=== PATIENT | female | born 1975 | race Caucasian/White ===

== ENCOUNTER 2016-09-12 20:14 | Inpatient (IN) | payer OTHER, MEDICARE ==
[~2016-09-12] VITALS: Ht 165.1 cm; Wt 69.6 kg
[~2016-09-12 20:14] MED LIST: ALBU1AER INH; IBUP600 PO; PERC5TAB12 PO; PRENCAP6 PO
[2016-09-12] MEDS ORDERED: SODIUM CHLOR 0.9% 1000 ML INJ 1,000 ML IV SCH (20:17)
[2016-09-12 20:19] VITALS: BP 132/77; PULSE 99; RESP 18; TEMP 98.3; O2SAT 99
[2016-09-12 20:30] VITALS: RESP 18; O2SAT 100
--- NOTE | 2016-09-12 20:30 | PD ---
HPI Chief Complaint: Respiratory Symptoms Time Seen by Provider: 20:17 Travel History International Travel<30 days: No Contact w/Intl Traveler<30days: No Traveled to known affect area: No History of Present Illness HPI Patient 40-year-old female presents emergency department for altered mental status. According to EMS patient was apparently going to the mall to shop with her boyfriend. Her boyfriend arrived and found her slumped over in a chair. She was unresponsive that time, boyfriend started giving rescue breaths on scene. EMS arrived to find the patient propofol and apneic. She had an opiate past and was being bagged, she was given 0.5 mg of Narcan in route. On arrival the patient does have an OPA in place is sitting up and looking around. She then began to gag on the OPA Neocate was removed. The patient is GCS of 14(E3) . She states she was going to go shopping today and she doesn't know what happened. She relates some history of being at [facility] for a head injury. Further history of present illness is extremely limited by the patient' s condition however the patient is able to tell me she has no allergies takes no medicines has no medical problems and has had no surgeries. Review the records show she does have a history of bipolar disorder. PFSH Past Medical History Arthritis: No Asthma: Yes Autoimmune Disease: No Blood Disorders: No Bipolar Disorder: Yes Anxiety: Yes Depression: Yes Heart Rhythm Problems: No Cancer: No Cardiovascular Problems: Yes High Cholesterol: No Chemotherapy: No Chest Pain: No Congestive Heart Failure: No COPD: No Cerebrovascular Accident: No Diabetes: No Diminished Hearing: No Endocrine: No Gastrointestinal Disorders: Yes (IRRITABLE BOWEL SYNDROME) GERD: No Glaucoma: No Genitourinary: No Headaches: No Hepatitis: No Hiatal Hernia: No Immune Disorder: No Kidney Stones: No Musculoskeletal: Yes (RESTLESS LEG SYNDROME) Neurologic: No Psychiatric: Yes Respiratory: Yes Migraines: Yes Myocardial Infarction: No Radiation Therapy: No Renal Failure: No Schizophrenia: Yes Seizures: No Sickle Cell Disease: No Sleep Apnea: No Thyroid Disease: No Ulcer: No : 3 Miscarriage: 1 : 2 Past Surgical History Abdominal Surgery: No AICD: No Cardiac Surgery: No Cholecystectomy: Yes Ear Surgery: No Endocrine Surgery: No Eye Surgery: No Genitourinary Surgery: No Gynecologic Surgery: No Joint Replacement: No Neurologic Surgery: No Oral Surgery: Yes (WISDOM TEETH; DENTAL SX) Pacemaker: No Thoracic Surgery: No Tonsillectomy: Yes (1983) Other Surgery: Yes (TONSILS OUT, 1983) Social History Alcohol Use: No Tobacco Use: Yes Substance Use: No Allergies-Medications (Allergen,Severity, Reaction): Coded Allergies: Sulfa (Verified Allergy, Intermediate, HIVES, 09/12/16) Reported Meds & Prescriptions Reported Meds & Active Scripts Active Reported Klonopin (Clonazepam) 2 Mg Tab 2 Mg PO TID Trazodone (Trazodone HCl) 150 Mg Tab 150 Mg PO HS Multivitamin Adults (Multiple Vitamins W/ Minerals) 1 Tab 1 Tab PO DAILY Proair Hfa 8.5 GM Inh (Albuterol Sulfate) 90 Mcg/Act Aer 1 Puff INH Q4H PRN 108 mcg/actuation Abilify (Aripiprazole) 10 Mg Tab 10 Mg PO DAILY Review of Systems Except as stated in HPI: all other systems reviewed are Neg Physical Exam Narrative GENERAL: Well-developed well-nourished, OPA in place was removed on arrival as above. SKIN: Focused skin assessment warm/dry. HEAD: There is a contusion to the left frontal region. No dow signs no raccoons eyes. Normocephalic. EYES: Pupils equal and round. No scleral icterus. No injection or drainage. ENT: No nasal bleeding or discharge. Mucous membranes pink and moist. NECK: Trachea midline. No JVD. CARDIOVASCULAR: Regular rate and rhythm. No murmur appreciated. 2+ bilateral equal pulses in all 4 extremity's. RESPIRATORY: No accessory muscle use. Clear to auscultation. Breath sounds equal bilaterally. GASTROINTESTINAL: Abdomen soft, non-tender, nondistended. Hepatic and splenic margins not palpable. MUSCULOSKELETAL: No obvious deformities. No clubbing. No cyanosis. No edema. NEUROLOGICAL: Awake and alert. No obvious cranial nerve deficits. Motor grossly within normal limits. Normal speech. PSYCHIATRIC: Unable to assess. Data Data Last Documented VS Vital Signs Date Time Temp Pulse Resp B/P Pulse Ox O2 Delivery O2 Flow Rate FiO2 09/12/16 20:30 99 Nasal Cannula 2 09/12/16 20:30 18 09/12/16 20:19 98.3 99 132/77 Orders Electrocardiogram (09/12/16 20:17) Ammonia (09/12/16 20:17) Complete Blood Count With Diff (09/12/16 20:17) Comprehensive Metabolic Panel (09/12/16 20:17) Creatine Kinase (Cpk) (09/12/16 20:17) Prothrombin Time / Inr (Pt) (09/12/16 20:17) Act Partial Throm Time (Ptt) (09/12/16 20:17) Troponin I (09/12/16 20:17) Thyroid Stimulating Hormone (09/12/16 20:17) Urinalysis - C+S If Indicated (09/12/16 20:17) Ua Includes Microscopic (09/12/16 20:17) Lactic Acid Sepsis Protocol (09/12/16 20:17) Blood Culture (09/12/16 20:17) Chest, Single Ap (09/12/16 20:17) Ct Brain W/O Iv Contrast(Rout) (09/12/16 20:17) Blood Glucose (09/12/16 20:17) Ecg Monitoring (09/12/16 20:17) Iv Access Insert/Monitor (09/12/16 20:17) Cath For Specimen (09/12/16 20:17) Oximetry (09/12/16 20:17) Oxygen Administration (09/12/16 20:17) Urinary Catheter Insert/Apply (09/12/16 20:17) Sodium Chlor 0.9% 1000 Ml Inj (Ns 1000 M (09/12/16 20:17) Ct Cerv Spine W/O Contrast (09/12/16 ) Drug Screen, Random Urine (09/12/16 20:17) Ed Urine Pregnancytest Poc (09/12/16 20:17) Apply Cervical Collar (09/12/16 20:17) Arterial Blood Gas (Abg) (09/12/16 ) Urine Culture (09/12/16 20:40) Blood Gas Venous (Vbg) (09/12/16 22:51) Sodium Chlor 0.9% 1000 Ml Inj (Ns 1000 M (09/12/16 23:30) Admit Order (Ed Use Only) (09/12/16 ) Labs Laboratory Tests Test 09/12/16 09/12/16 09/12/16 09/12/16 20:30 20:38 20:40 23:18 White Blood Count 6.2 TH/MM3 Red Blood Count 5.34 MIL/MM3 Hemoglobin 15.4 GM/DL Hematocrit 45.3 % Mean Corpuscular Volume 84.8 FL Mean Corpuscular Hemoglobin 28.8 PG Mean Corpuscular Hemoglobin 33.9 % Concent Red Cell Distribution Width 13.3 % Platelet Count 198 TH/MM3 Mean Platelet Volume 7.9 FL Neutrophils (%) (Auto) 48.4 % Lymphocytes (%) (Auto) 45.1 % Monocytes (%) (Auto) 5.3 % Eosinophils (%) (Auto) 0.8 % Basophils (%) (Auto) 0.4 % Neutrophils # (Auto) 3.0 TH/MM3 Lymphocytes # (Auto) 2.8 TH/MM3 Monocytes # (Auto) 0.3 TH/MM3 Eosinophils # (Auto) 0.0 TH/MM3 Basophils # (Auto) 0.0 TH/MM3 CBC Comment DIFF FINAL Differential Comment Prothrombin Time 11.1 SEC Prothromb Time International 1.0 RATIO Ratio Activated Partial 26.7 SEC Thromboplast Time Sodium Level 143 MEQ/L Potassium Level 3.6 MEQ/L Chloride Level 106 MEQ/L Carbon Dioxide Level 27.2 MEQ/L Anion Gap 10 MEQ/L Blood Urea Nitrogen 7 MG/DL Creatinine 1.25 MG/DL Estimat Glomerular Filtration 48 ML/MIN Rate Random Glucose 122 MG/DL Lactic Acid Level 2.9 mmol/L 1.5 mmol/L Calcium Level 7.9 MG/DL Total Bilirubin 0.2 MG/DL Aspartate Amino Transf 21 U/L (AST/SGOT) Alanine Aminotransferase 22 U/L (ALT/SGPT) Alkaline Phosphatase 61 U/L Ammonia 19 MCMOL/L Total Creatine Kinase 97 U/L Troponin I LESS THAN 0.02 NG/ML Total Protein 7.1 GM/DL Albumin 3.5 GM/DL Thyroid Stimulating Hormone 2.750 uIU/ML 3rd Gen Blood Gas Puncture Site RT RADIAL PIV Blood Gas Patient Temperature 98.6 98.6 Blood Gas HCO3 22 mmol/L Blood Gas Base Excess -4.4 mmol/L Blood Gas Oxygen Saturation 89 % Arterial Blood pH 7.26 Arterial Blood Partial 50 mmHg Pressure CO2 Arterial Blood Partial 104 mmHG Pressure O2 Arterial Blood Oxygen Content 16.6 Vol % Arterial Blood 7.4 % Carboxyhemoglobin Arterial Blood Methemoglobin 1.0 % Blood Gas Hemoglobin 13.2 G/DL Oxygen Delivery Device NASAL CANNULA NASAL CANNULA Blood Gas Liter Flow 4 L/M 2 L/M Urine Color YELLOW Urine Turbidity CLEAR Urine pH 6.0 Urine Specific [place] 1.007 Urine Protein 100 mg/dL Urine Glucose (UA) NEG mg/dL Urine Ketones NEG mg/dL Urine Occult Blood NEG Urine Nitrite NEG Urine Bilirubin NEG Urine Urobilinogen LESS THAN 2.0 MG/DL Urine Leukocyte Esterase NEG Urine RBC 1 /hpf Urine WBC 1 /hpf Urine Squamous Epithelial <1 /hpf Cells Urine Amorphous Sediment RARE Urine Bacteria RARE /hpf Urine Mucus FEW /lpf Microscopic Urinalysis Comment CATH-CULTURE IND Urine Opiates Screen NEG Urine Barbiturates Screen NEG Urine Amphetamines Screen NEG Urine Benzodiazepines Screen POS Urine Cocaine Screen POS Urine Cannabinoids Screen NEG Venous Blood pH 7.26 Venous Blood Partial Pressure 46 mmHg CO2 Venous Blood Partial Pressure 46 mmHg O2 Venous Blood HCO3 20 mmol/L Venous Blood Oxygen Saturation 74 % Venous Blood Oxygen Content 12.5 Vol % Venous Blood Base Excess -5.7 mmol/L MDM Medical Decision Making Medical Screen Exam Complete: Yes Emergency Medical Condition: Yes Interpretation(s) EKG shows normal sinus rhythm with normal axis normal R-wave progression. Intervals within normal limits. No concerning ST T changes. This normal EKG. Differential Diagnosis Respiratory failure, drug overdose, head injury, neck injury. Narrative Course Patient was roomed in the emergency department, on arrival she has an OPA in place and is very lethargic, she had quickly responded well to Narcan was given in route. She began to gag on the OPA Neocate was removed. She did not vomit. Her initial GCS was 14, remained 14 while she was in the emergency department. Initial ABG did show some respiratory and metabolic acidosis, lactic acid was 2.4. She was given normal saline and oxygen and allowed to recuperate. Several hours later a repeat VBG was obtained and the patient remains acidotic. She is still somewhat somnolent and a GCS of 14. Nurses were able to obtain history that apparently patient ground up which she thought was Dilaudid and snorted it. The patient was then discussed with Dr. Castro and will be admitted to the ICU. Her c-collar was removed after negative CAT scan: Last [address] 09/12/162016 Signed Impressions: Service Date/Time: August 21:38 - CONCLUSION: No acute disease. Bernardo Bernal MD FACR Chest X-Ray 09/12/162016 Signed Impressions: Service Date/Time: August 20:25 - CONCLUSION: No acute disease. MD RACQUEL PolancoR Cervical Spine CT 09/12/16 0000 Signed Impressions: Service Date/Time: August 21:38 - CONCLUSION: Negative for fracture. Bernardo Bernal MD FACR Procedures Procedure Narrative Aggregate critical care time was 35] minutes. Time to perform other separately billable procedures was not included in the critical care time. My time did not include minutes spent treating any other patients simultaneously or on activities that did not directly contribute to the patient's treatment. The services I provided to this patient were to treat and/or prevent clinically significant deterioration that could result in: , disability, organ failure. I provided critical care services requiring my management, as noted below: Chart data review, documentation time, medication orders and management, vital sign assessments/reviewing monitor data, ordering and reviewing lab tests, ordering and interpreting/reviewing x-rays and diagnostic studies, care of the patient and discussion of the patient with the admitting physicians. Diagnosis Primary Impression: Altered mental status Qualified Code: R41.82 - Altered mental status, unspecified altered mental status type Additional Impressions: Opiate overdose Acidosis Admitting Information Admitting Physician Requests: Admit Condition: Stable Tom Moe MD September 12, 2016 20:30
--- NOTE | 2016-09-12 20:36 | RADRPT ---
EXAM DATE/TIME: 09/12/2016 20:25 [facility] COMPARISON: No previous studies available for comparison. INDICATIONS : Syncopal episode today. MEDICAL HISTORY : None. SURGICAL HISTORY : None. ENCOUNTER: Initial ACUITY: 1 day PAIN SCORE: 0/10 LOCATION: Bilateral chest FINDINGS: A single view of the chest demonstrates the lungs to be symmetrically aerated without evidence of mas s, infiltrate or effusion. The cardiomediastinal contours are unremarkable. Osseous structures are intact. CONCLUSION: No acute disease. Bernardo Bernal MD FACR on September 12, 2016 at 20:34 Board Certified Radiologist. This report was verified electronically.
[2016-09-12] MEDS ORDERED: ALBUAER3 INH (20:38)
[2016-09-12] MEDS ORDERED: TRAZ150T75 PO (20:38)
[2016-09-12] MEDS ORDERED: ARIP1TAB5 PO (20:38)
[2016-09-12] MEDS ORDERED: KLON2TAB PO (20:38)
[2016-09-12] MEDS ORDERED: MULT1TAB84 PO (20:38)
[2016-09-12 20:46] LABS: BASOPHIL % 0.4 % (0.0-2.0); EOSINOPHIL % 0.8 % (0.0-4.0); HEMATOCRIT 45.3 % (35.0-46.0); HEMO FLAGS DIFF FINAL; LYMPH % 45.1 % (9.0-44.0); LYMPHOCYTE # 2.8 TH/MM3 (1.0-4.8); MEAN CELL VOLUME 84.8 FL (80.0-100.0); MEAN CORPUSCULAR HEMOGLOBIN 28.8 PG (27.0-34.0); MEAN CORPUSCULAR HGB CONC 33.9 % (32.0-36.0); MONO % 5.3 % (0.0-8.0); NEUT % 48.4 % (16.0-70.0); PLATELET COUNT 198 TH/MM3 (150-450); RED BLOOD COUNT 5.34 MIL/MM3 (4.00-5.30); RED CELL DISTRIBUTION WIDTH 13.3 % (11.6-17.2); WHITE BLOOD COUNT 6.2 TH/MM3 (4.0-11.0)
[2016-09-12 20:46] LABS: BLOOD GAS BASE EXCESS -4.4 mmol/L (-2-2); BLOOD GAS CARBOXYHEMOGLOBIN 7.4 % (0-4); BLOOD GAS HCO3 22 mmol/L (22-26); BLOOD GAS O2 HGB SATURATION 89 % (90-100); BLOOD GAS OXYGEN CONTENT 16.6 Vol % (12.0-20.0); BLOOD GAS PCO2 50 mmHg (38-42); BLOOD GAS PO2 104 mmHG (61-120); BLOOD GAS TOTAL HGB 13.2 G/DL (12.0-16.0); CRITICAL VALUE YES; DRAW SITE RT RADIAL; LITER FLOW 4 L/M; NUMBER OF ARTERIAL PUNCTURES 1; OXYGEN DEVICE NASAL CANNULA; STAT YES; TEMP CORR TO 98.6; ULNAR PULSE PRESENT
[2016-09-12 21:00] LABS: APTT (PATIENT) 26.7 SEC (24.3-30.1); PROTHROMBIN TIME - PATIENT 11.1 SEC (9.8-11.6)
[2016-09-12 21:22] LABS: ANION GAP 10 MEQ/L (5-15); AST (GOT) 21 U/L (15-37); BICARBONATE 27.2 MEQ/L (21.0-32.0); BLOOD UREA NITROGEN 7 MG/DL (7-18); CHLORIDE 106 MEQ/L (98-107); GLOMERULAR FILTRATION RATE 48 ML/MIN (>89); POTASSIUM 3.6 MEQ/L (3.5-5.1); SODIUM (NA) 143 MEQ/L (136-145)
[2016-09-12 21:25] LABS: BACTERIA, URINE RARE /hpf; BLOOD, URINE NEG (NEG); GLUCOSE,URINE NEG (NEG); KETONE, URINE NEG (NEG); MUCUS URINE FEW /lpf (OCC); NITRITE,URINE NEG (NEG); SQUAMOUS EPITHELIAL CELL URINE <1 /hpf (0-5); URINE COLOR YELLOW (YELLW/STRAW)
[2016-09-12 21:26] LABS: COMMENT (UR) CATH-CULTURE IND; CULTURE IF INDICATED CATH CULTURE IND
[2016-09-12 21:28] LABS: AMPHETAMINE, URINE NEG (NEG); BARBITURATES, URINE NEG (NEG); COCAINE, URINE POS (NEG)
[2016-09-12 21:32] LABS: ALKALINE PHOSPHATASE 61 U/L (45-117); ALT (GPT) 22 U/L (10-53); TOTAL BILIRUBIN ADULT 0.2 MG/DL (0.2-1.0)
[2016-09-12 21:37] LABS: CREATINE KINASE 97 U/L (26-192)
--- NOTE | 2016-09-12 21:57 | RADRPT ---
EXAM DATE/TIME: 09/12/2016 21:38 [facility] COMPARISON: No previous studies available for comparison. INDICATIONS : Altered mental status, found unresponsive. RADIATION DOSE: 36.13 CTDIvol (mGy) MEDICAL HISTORY : Cardiovascular disease. SURGICAL HISTORY : Tonsillectomy. ENCOUNTER: Initial ACUITY: 1 day PAIN SCALE: Non-responsive LOCATION: Bilateral head TECHNIQUE: Multiple contiguous axial images were obtained of the head. Using automated exposure control and adj ustment of the mA and/or kV according to patient size, radiation dose was kept as low as reasonably a chievable to obtain optimal diagnostic quality images. FINDINGS: CEREBRUM: The ventricles are normal for age. No evidence of midline shift, mass lesion, hemorrhage or acute in farction. No extra-axial fluid collections are seen. POSTERIOR FOSSA: The cerebellum and brainstem are intact. The 4th ventricle is midline. The cerebellopontine angle i s unremarkable. EXTRACRANIAL: The visualized portion of the orbits is intact. SKULL: The calvaria is intact. No evidence of skull fracture. CONCLUSION: No acute disease. Bernardo Bernal MD FACR on September 12, 2016 at 21:55 Board Certified Radiologist. This report was verified electronically.
--- NOTE | 2016-09-12 22:07 | RADRPT ---
EXAM DATE/TIME: 09/12/2016 21:38 [facility] COMPARISON: No previous studies available for comparison. INDICATIONS : Possible trauma to neck, found unresponsive. RADIATION DOSE: 21.01 CTDIvol (mGy) MEDICAL HISTORY : Cardiovascular disease. SURGICAL HISTORY : Tonsillectomy. ENCOUNTER: Initial ACUITY: 1 day PAIN SCALE: Non-responsive LOCATION: Bilateral neck TECHNIQUE: Volumetric scanning of the cervical spine was performed. Multiplanar reconstructions i n the sagittal, coronal and oblique axial planes were performed. Using automated exposure control a nd adjustment of the mA and/or kV according to patient size, radiation dose was kept as low as reason ably achievable to obtain optimal diagnostic quality images. FINDINGS: VERTEBRAE: Normal vertebral body height. ALIGNMENT: No evidence of subluxation. C2-C3: The bony spinal canal is normal in size. No evidence of disc bulge or herniation. The neura l foramina are bilaterally patent. C3-C4: The bony spinal canal is normal in size. No evidence of disc bulge or herniation. The neura l foramina are bilaterally patent. C4-C5: The bony spinal canal is normal in size. No evidence of disc bulge or herniation. The neura l foramina are bilaterally patent. C5-C6: The bony spinal canal is normal in size. No evidence of disc bulge or herniation. The neura l foramina are bilaterally patent. C6-C7: The bony spinal canal is normal in size. No evidence of disc bulge or herniation. The neura l foramina are bilaterally patent. C7-T1: The bony spinal canal is normal in size. No evidence of disc bulge or herniation. The neura l foramina are bilaterally patent. CONCLUSION: Negative for fracture. Bernardo Bernal MD FACR on September 12, 2016 at 22:05 Board Certified Radiologist. This report was verified electronically.
[2016-09-12 22:38] LABS: LACTIC ACID GHOST NOT REPORTABLE
[2016-09-12 23:23] LABS: BLOOD GAS VENOUS BASE EXCESS -5.7 mmol/L (-2-2); BLOOD GAS VENOUS HCO3 20 mmol/L (22-26); BLOOD GAS VENOUS O2 CONTENT 12.5 Vol % (9.0-17.0); BLOOD GAS VENOUS O2 HGB SAT 74 % (70-76); BLOOD GAS VENOUS PCO2 46 mmHg (44-48); BLOOD GAS VENOUS PO2 46 mmHg (35-40); BLOOD GAS VENOUS pH 7.26 (7.360-7.400); CRITICAL VALUE YES; DRAW SITE PIV; LITER FLOW 2 L/M; OXYGEN DEVICE NASAL CANNULA; STAT YES; TEMP CORR TO 98.6
[2016-09-12] MEDS ORDERED: SODIUM CHLOR 0.9% 1000 ML INJ 1,000 ML IV ONE (23:30)
--- NOTE | 2016-09-12 23:42 | HHI.HP ---
HPI Service Critical Care Medicine Primary Care Physician No Primary Care Physician Admission Diagnosis Overdose, Acidosis, Hypercapnea Diagnosis: Travel History International Travel<30 Days: No Contact w/Intl Traveler <30 Da: No Traveled to Known Affected Are: No History of Present Illness 40-year-old female after she was found unconscious by her friend at the mall shortly after she was snorting some Dilaudid. According to EMS patient was apparently going to the mall to shop with her boyfriend. Her boyfriend arrived and found her slumped over in a chair. She was unresponsive that time, boyfriend started giving rescue breaths on scene. EMS arrived to find the patient purple and apneic. She had being bagged, she was given 0.5 mg of Narcan in route. On arrival the patient did have an OPA in place is sitting up and looking around. She then began to gag on the OPA Neocate was removed. The patient is GCS of 14(E3). Venous blood gas showed significant acidosis and she was admitted to ICU. Review of Systems ROS Unable to obtain patient is to its origin Past Family Social History Allergies: Coded Allergies: Sulfa (Verified Allergy, Intermediate, HIVES, 09/12/16) Past Medical History Unable to obtain Past Surgical History Unable to obtain Reported Medications Reported Meds & Active Scripts Active Reported Klonopin (Clonazepam) 2 Mg Tab 2 Mg PO TID Trazodone (Trazodone HCl) 150 Mg Tab 150 Mg PO HS Multivitamin Adults (Multiple Vitamins W/ Minerals) 1 Tab 1 Tab PO DAILY Proair Hfa 8.5 GM Inh (Albuterol Sulfate) 90 Mcg/Act Aer 1 Puff INH Q4H PRN 108 mcg/actuation Abilify (Aripiprazole) 10 Mg Tab 10 Mg PO DAILY Active Ordered Medications Current Medications Medications (Trade) Dose Ordered Sig/Alee Route PRN Reason Start Time Stop Time Status Last Admin Dose Admin Clonazepam (KlonoPIN) 2 mg TID PO 09/13/16 09:00 Aripiprazole 10 mg 10 mg DAILY PO 09/13/16 09:00 Sodium Chloride (NS 1000 ml Inj) 1,000 ml @ 184 mls/hr Q5H27M IV 09/12/16 23:44 09/13/16 00:12 Sodium Chloride (NS Flush) 2 ml UNSCH PRN .XX FLUSH AFTER USING IV ACCESS 09/12/16 23:45 Sodium Chloride (NS Flush) 2 ml BID .XX 09/13/16 09:00 Acetaminophen (Tylenol) 650 mg Q6H PRN PO PAIN 1-10 AND/OR FEVER >101F 09/12/16 23:45 Ondansetron HCl (Zofran Inj) 4 mg Q6H PRN IV NAUSEA OR VOMITING 09/12/16 23:45 Metoclopramide HCl (Reglan Inj) 10 mg Q6H PRN IV NAUSEA OR VOMITING 09/12/16 23:45 Docusate Sodium (Colace) 100 mg BID PO 09/13/16 09:00 Miscellaneous Information 1 Q361D XX 09/12/16 23:45 Chlorhexidine Gluconate (Chlorhexidine 2% Cloth) 3 pack Taper DAILY@04 TOP 09/13/16 04:00 09/09/17 03:59 Chlorhexidine Gluconate (Chlorhexidine 2% Cloth) 3 pack UNSCH PRN TOP HYGIENIC CARE 09/12/16 23:45 Family History Unable to obtain Social History She smokes She uses cocaine occasionally She uses opiates when available No history of alcohol abuse Physical Exam Vital Signs Vital Signs Date Time Temp Pulse Resp B/P Pulse Ox O2 Delivery O2 Flow Rate FiO2 09/12/16 20:30 99 Nasal Cannula 2 09/12/16 20:30 18 100 Nasal Cannula 09/12/16 20:19 98.3 99 18 132/77 99 Physical Exam GENERAL: Lethargic confused female in no acute distress SKIN: Warm and dry. HEAD: Normocephalic. EYES: No scleral icterus. No injection or drainage. NECK: Supple, trachea midline. No JVD or lymphadenopathy. CARDIOVASCULAR: Regular rate and rhythm without murmurs, gallops, or rubs. RESPIRATORY: Breath sounds equal bilaterally. No accessory muscle use. GASTROINTESTINAL: Abdomen soft, non-tender, nondistended. MUSCULOSKELETAL: No cyanosis, or edema. BACK: Nontender without obvious deformity. No CVA tenderness. EXTREMITIES: No clubbing cyanosis or edema Laboratory Laboratory Tests Test 09/12/16 09/12/16 09/12/16 09/12/16 20:30 20:38 20:40 23:18 White Blood Count 6.2 Red Blood Count 5.34 Hemoglobin 15.4 Hematocrit 45.3 Mean Corpuscular Volume 84.8 Mean Corpuscular Hemoglobin 28.8 Mean Corpuscular Hemoglobin 33.9 Concent Red Cell Distribution Width 13.3 Platelet Count 198 Mean Platelet Volume 7.9 Neutrophils (%) (Auto) 48.4 Lymphocytes (%) (Auto) 45.1 Monocytes (%) (Auto) 5.3 Eosinophils (%) (Auto) 0.8 Basophils (%) (Auto) 0.4 Neutrophils # (Auto) 3.0 Lymphocytes # (Auto) 2.8 Monocytes # (Auto) 0.3 Eosinophils # (Auto) 0.0 Basophils # (Auto) 0.0 CBC Comment DIFF FINAL Differential Comment Prothrombin Time 11.1 Prothromb Time International 1.0 Ratio Activated Partial 26.7 Thromboplast Time Sodium Level 143 Potassium Level 3.6 Chloride Level 106 Carbon Dioxide Level 27.2 Anion Gap 10 Blood Urea Nitrogen 7 Creatinine 1.25 Estimat Glomerular Filtration 48 Rate Random Glucose 122 Lactic Acid Level 2.9 Calcium Level 7.9 Total Bilirubin 0.2 Aspartate Amino Transf 21 (AST/SGOT) Alanine Aminotransferase 22 (ALT/SGPT) Alkaline Phosphatase 61 Ammonia 19 Total Creatine Kinase 97 Troponin I LESS THAN 0.02 Total Protein 7.1 Albumin 3.5 Thyroid Stimulating Hormone 2.750 3rd Gen Blood Gas Puncture Site RT RADIAL PIV Blood Gas Patient Temperature 98.6 98.6 Blood Gas HCO3 22 Blood Gas Base Excess -4.4 Blood Gas Oxygen Saturation 89 Arterial Blood pH 7.26 Arterial Blood Partial 50 Pressure CO2 Arterial Blood Partial 104 Pressure O2 Arterial Blood Oxygen Content 16.6 Arterial Blood 7.4 Carboxyhemoglobin Arterial Blood Methemoglobin 1.0 Blood Gas Hemoglobin 13.2 Oxygen Delivery Device NASAL CANNULA NASAL CANNULA Blood Gas Liter Flow 4 2 Urine Color YELLOW Urine Turbidity CLEAR Urine pH 6.0 Urine Specific [place] 1.007 Urine Protein 100 Urine Glucose (UA) NEG Urine Ketones NEG Urine Occult Blood NEG Urine Nitrite NEG Urine Bilirubin NEG Urine Urobilinogen LESS THAN 2.0 Urine Leukocyte Esterase NEG Urine RBC 1 Urine WBC 1 Urine Squamous Epithelial <1 Cells Urine Amorphous Sediment RARE Urine Bacteria RARE Urine Mucus FEW Microscopic Urinalysis Comment CATH-CULTURE IND Urine Opiates Screen NEG Urine Barbiturates Screen NEG Urine Amphetamines Screen NEG Urine Benzodiazepines Screen POS Urine Cocaine Screen POS Urine Cannabinoids Screen NEG Venous Blood pH 7.26 Venous Blood Partial Pressure 46 CO2 Venous Blood Partial Pressure 46 O2 Venous Blood HCO3 20 Venous Blood Oxygen Saturation 74 Venous Blood Oxygen Content 12.5 Venous Blood Base Excess -5.7 Date/Time Procedure Status Source Growth 09/12/16 20:40 Urine Culture Received Urine Catheterized Urine Pending 09/12/16 20:30 Aerobic Blood Culture Received Blood Peripheral Pending 09/12/16 20:30 Anaerobic Blood Culture Received Blood Peripheral Pending Result Diagram: 09/12/16202909/12/162029 Imaging Last [address] 09/12/162016 Signed Impressions: Service Date/Time: August 21:38 - CONCLUSION: No acute disease. Bernardo Bernal MD FACR Chest X-Ray 09/12/162016 Signed Impressions: Service Date/Time: August 20:25 - CONCLUSION: No acute disease. Bernardo Bernal MD FACR Assessment and Plan Assessment and Plan Respiratory acidosis with Metabolic acidosis - Due to narcotic overdose - Admit to ICU - Neuro checks. Protocol - Careful watch for intubation - Supportive care - Repeat ABG Polysubstance abuse - Monitor for withdrawal DVT GI prophylaxis - Early aggressive mobilization - Regular diet Critical Care: The total critical care time was 35 minutes. Time to perform other separately billable procedures was not included in the critical care time. Colin Castro MD September 12, 2016 23:42
[2016-09-12] MEDS ORDERED: CHLORHEXIDINE GLUCONATE 2 % 1 PACK (2 CLOTHS) TOP PRN (23:45)
[2016-09-12] MEDS ORDERED: SODIUM CHLORIDE 0.9% FLUSH 10 ML FLUSH PRN (23:45)
[2016-09-12] MEDS ORDERED: ACETAMINOPHEN 325 MG TAB PO PRN (23:45)
[2016-09-12] MEDS ORDERED: RESP: ALBUTEROL 2.5 MG/IPRATROPIUM 0.5 MG NEB (PRN) INH (23:45)
[2016-09-12] MEDS ORDERED: ONDANSETRON HCL 4 MG/2 ML VIAL IV PRN (23:45)
[2016-09-12] MEDS ORDERED: MISCELLANEOUS NURSING INFORMATION XX SCH (23:45)
[2016-09-12] MEDS ORDERED: METOCLOPRAMIDE HCL 10 MG/2 ML VIAL IV PRN (23:45)
[2016-09-13] VITALS (7 sets, daily range): BP systolic 102–128; BP diastolic 63–87; PULSE 78–86; RESP 12–20; TEMP 97.9–98.9; O2SAT 98–100
[2016-09-13] MEDS: SODIUM CHLOR 0.9% 1000 ML INJ 1,000 ML IV SCH ×2 (00:12→05:11)
[2016-09-13] MEDS ORDERED: CHLORHEXIDINE GLUCONATE 2 % 1 PACK (2 CLOTHS) TOP SCH (04:00)
[2016-09-13 04:27] LABS: AUTOMATED NEUTROPHIL # 3.4 TH/MM3 (1.8-7.7); BASOPHIL % 0.5 % (0.0-2.0); EOSINOPHIL # 0.1 TH/MM3 (0-0.4); EOSINOPHIL % 1.7 % (0.0-4.0); HEMATOCRIT 39.2 % (35.0-46.0); HEMO FLAGS DIFF FINAL; LYMPH % 40.3 % (9.0-44.0); LYMPHOCYTE # 2.6 TH/MM3 (1.0-4.8); MEAN CELL VOLUME 85.4 FL (80.0-100.0); MEAN CORPUSCULAR HEMOGLOBIN 28.8 PG (27.0-34.0); MEAN CORPUSCULAR HGB CONC 33.7 % (32.0-36.0); MONO % 5.3 % (0.0-8.0); NEUT % 52.2 % (16.0-70.0); PLATELET COUNT 153 TH/MM3 (150-450); RED BLOOD COUNT 4.59 MIL/MM3 (4.00-5.30); RED CELL DISTRIBUTION WIDTH 13.2 % (11.6-17.2); WHITE BLOOD COUNT 6.6 TH/MM3 (4.0-11.0)
[2016-09-13 04:50] LABS: BICARBONATE 24.9 MEQ/L (21.0-32.0); CALCIUM-PROTEIN CORRECTED 8.3 MG/DL (8.5-10.1); MAGNESIUM 1.6 MG/DL (1.5-2.5); POTASSIUM 3.3 MEQ/L (3.5-5.1); TOTAL BILIRUBIN ADULT 0.2 MG/DL (0.2-1.0)
[2016-09-13 06:36] LABS: BLOOD GAS VENOUS BASE EXCESS 0.3 mmol/L (-2-2); BLOOD GAS VENOUS HCO3 26 mmol/L (22-26); BLOOD GAS VENOUS O2 CONTENT 14.8 Vol % (9.0-17.0); BLOOD GAS VENOUS O2 HGB SAT 82 % (70-76); BLOOD GAS VENOUS PCO2 52 mmHg (44-48); BLOOD GAS VENOUS PO2 52 mmHg (35-40); BLOOD GAS VENOUS pH 7.32 (7.360-7.400); TEMP CORR TO 98.6
[2016-09-13 06:37] LABS: CRITICAL VALUE YES
[2016-09-13 06:38] LABS: DRAW SITE VBG; LITER FLOW 2 L/M; OXYGEN DEVICE NASAL CANNULA; STAT NO
[2016-09-13] MEDS ORDERED: MAGNESIUM HYDROXIDE SUSP 30 ML CUP PO PRN (08:00)
[2016-09-13] MEDS ORDERED: CALCIUM CARBONATE 500 MG CHEWABLE TAB CHEW PRN (08:00)
[2016-09-13] MEDS ORDERED: POTASSIUM CHLORIDE 10 MEQ CONTROLLED RELEASE TAB PO ONE (08:00)
[2016-09-13] MEDS: clonazePAM 1 MG TAB PO SCH ×2 (08:23→12:58)
[2016-09-13] MEDS ORDERED: LORazepam 2 MG/ML VIAL IV PUSH PRN (08:45)
[2016-09-13] MEDS ORDERED: SODIUM CHLORIDE 0.9% FLUSH 10 ML FLUSH SCH (09:00)
[2016-09-13] MEDS ORDERED: ARIPiprazole 10 MG TAB PO SCH (09:00)
[2016-09-13] MEDS ORDERED: DOCUSATE SODIUM 100 MG CAP PO SCH (09:00)
--- NOTE | 2016-09-13 13:07 | HHI.PR ---
Subjective Remarks Follow-up syncope. No recurrence. Patient acknowledges that she passed out secondary to snorting illicit drug. Patient witnessed by her fianc. Discussed with RN Objective Vitals Vital Signs Date Time Temp Pulse Resp B/P Pulse Ox O2 Delivery O2 Flow Rate FiO2 09/13/16 12:00 98.9 78 20 124/74 98 09/13/16 08:00 98 Room Air 09/13/16 08:00 82 09/13/16 08:00 98.6 82 12 109/70 98 09/13/16 06:00 82 15 102/63 99 09/13/16 04:00 97.9 79 15 126/80 98 09/13/16 02:30 86 09/13/16 02:30 Nasal Cannula 2.00 09/13/16 02:30 98.1 78 17 126/87 100 09/13/16 01:04 100 Nasal Cannula 2.00 09/13/16 00:00 79 16 128/72 99 Nasal Cannula 2 09/12/16 20:30 99 Nasal Cannula 2 09/12/16 20:30 18 100 Nasal Cannula 09/12/16 20:19 98.3 99 18 132/77 99 I/O 09/12/16 09/12/16 09/12/16 09/13/16 09/13/16 09/13/16 07:00 15:00 23:00 07:00 15:00 23:00 Intake Total 1243 ml Output Total 550 ml Balance 693 ml Intake Oral 620 ml IV Total 623 ml Output Urine Total 550 ml # Bowel Movements 1 Result Diagram: 09/13/16 0348 09/13/16 0348 Imaging Last Impressions Head CT 09/12/162016 Signed Impressions: Service Date/Time: August 21:38 - CONCLUSION: No acute disease. Bernardo Bernal MD FACR Chest X-Ray 09/12/162016 Signed Impressions: Service Date/Time: August 20:25 - CONCLUSION: No acute disease. Bernardo Bernal MD FACR Cervical Spine CT 09/12/16 Signed Impressions: Service Date/Time: August 21:38 - CONCLUSION: Negative for fracture. Bernardo Bernal MD FACR Objective Remarks GENERAL: Well-developed well-nourished in no distress. Alert and oriented SKIN: Warm and dry. HEAD: Normocephalic. Resolving bruise right supraorbital EYES: No scleral icterus. No injection or drainage. NECK: Supple, trachea midline. No JVD or lymphadenopathy. CARDIOVASCULAR: Regular rate and rhythm without murmurs, gallops, or rubs. RESPIRATORY: Breath sounds equal bilaterally. No accessory muscle use. GASTROINTESTINAL: Abdomen soft, non-tender, nondistended. MUSCULOSKELETAL: No cyanosis, or edema. BACK: Nontender without obvious deformity. No CVA tenderness. EXTREMITIES: No clubbing cyanosis or edema Procedures none A/P Problem List: (1) Altered mental status ICD Code: R41.82 Status: Acute Assessment and Plan Respiratory acidosis with Metabolic acidosis resolved - Due to narcotic overdose - Stable for discharge - Neuro checks. Protocol - Careful watch for intubation - Supportive care Polysubstance abuse - Monitor for withdrawal. Counseled. Outpatient follow-up History of COPD, asthma, migraine, IBS, restless leg syndrome, bipolar disorder , anxiety and depression. Stable continue outpatient medications as appropriate DVT GI prophylaxis - Early aggressive mobilization - Regular diet Discharge Planning Discharge patient to home Condition on discharge: Improved Regular Diet as tolerated Ad [place] activity, no driving Rx written: None Follow-up with primary care physician in 3 days Problem Qualifiers (1) Altered mental status: Qualified Code: R41.82 - Altered mental status, unspecified altered mental status type Burak Garcia MD September 13, 2016 13:06
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
--- NOTE | 2016-09-13 21:21 | EKG ---
Date Performed: 09/12/2016 Time Performed: 20:59:00 PTAGE: 40 years EKG: Sinus rhythm NORMAL ECG NO PREVIOUS TRACING DOCTOR: Mg Amado Interpretating Date/Time 09/13/2016 21:19:32
== END 2016-09-13 14:00 | disposition home or self-care (01) | DRG 918 ==
LOC: NEPE 20:14 → NEDA 23:37 → N03A 09-13 02:23
PROVIDERS: ADMIT Internal Medicine; ATTEND Internal Medicine
DX: T40.2X1A Poisoning by other opioids, accidental (unintentional), initial encounter (principal); E87.4 Mixed disorder of acid-base balance; J44.9 Chronic obstructive pulmonary disease, unspecified; F31.9 Bipolar disorder, unspecified; F41.9 Anxiety disorder, unspecified; G43.909 Migraine, unspecified, not intractable, without status migrainosus; G25.81 Restless legs syndrome; K58.9 Irritable bowel syndrome, unspecified; F17.210 Nicotine dependence, cigarettes, uncomplicated; Y92.009 Unspecified place in unspecified non-institutional (private) residence as the place of occurrence of the external cause
CPT/HCPCS: 36600; 70450; 71010; 72125; 80053; 80307; 81001; 82140; 82550; 82805; 83605; 83735; 84100; 84443; 84484; 84703; 85025; 85610; 85730; 87040; 87086; 87641; 93005; 96360; J7030; P9612

== ENCOUNTER 2016-11-07 07:55 | Emergency (ER) | payer MEDICARE, OTHER ==
[~2016-11-07 07:55] MED LIST changes: -ALBU1AER INH; +ALBUAER3 INH; +ARIP1TAB5 PO; -IBUP600 PO; +KLON2TAB PO; +MULT1TAB84 PO; -PERC5TAB12 PO; -PRENCAP6 PO; +TRAZ150T75 PO
[2016-11-07 07:57] VITALS: BP 155/94; PULSE 102; RESP 15; TEMP 98.6; O2SAT 97
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
[2016-11-07] MEDS ORDERED: MULTTAB67 PO (08:16)
[2016-11-07] MEDS ORDERED: TRAZ1TAB45 PO (08:16)
[2016-11-07 08:39] LABS: AMPHETAMINE, URINE NEG (NEG); BARBITURATES, URINE NEG (NEG); COCAINE, URINE POS (NEG)
== END 2016-11-07 09:53 | disposition left against medical advice (07) ==
LOC: NEPE 07:55
DX: S06.0X0A Concussion without loss of consciousness, initial encounter (principal); R00.0 Tachycardia, unspecified; F31.9 Bipolar disorder, unspecified; F41.9 Anxiety disorder, unspecified; J44.9 Chronic obstructive pulmonary disease, unspecified; K58.9 Irritable bowel syndrome, unspecified; F20.9 Schizophrenia, unspecified; Y04.2XXA Assault by strike against or bumped into by another person, initial encounter; Z79.899 Other long term (current) drug therapy
CPT/HCPCS: 80307; 84703; 99281

== ENCOUNTER 2016-12-03 13:22 | Inpatient (IN) | payer OTHER ==
[~2016-12-03 13:22] MED LIST changes: -MULT1TAB84 PO; +MULTTAB67 PO; -TRAZ150T75 PO; +TRAZ1TAB45 PO
[2016-12-03 13:25] VITALS: BP 145/95; PULSE 92; RESP 0; RESP 20; TEMP 98.5; O2SAT 97
[2016-12-03] MEDS ORDERED: PIPERACIL-TAZO 4.5 GM PREMIX 100 ML IV STA (13:42)
[2016-12-03] MEDS ORDERED: CLINDAMYCIN INJ 900 MG in SODIUM CHLORIDE 0.9% INJ 100 ML IV STA (13:42)
[2016-12-03] MEDS ORDERED: ONDANSETRON HCL 4 MG/2 ML VIAL IV ONE (13:45)
[2016-12-03] MEDS ORDERED: HYDROmorphone HCL PF 1 MG/ML VIAL IV ONE (13:45)
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
[2016-12-03 14:10] VITALS: BP 143/90; PULSE 85; RESP 16; O2SAT 99
[2016-12-03 14:16] LABS: GLUCOSE,URINE NEG (NEG); KETONE, URINE TRACE mg/dL (NEG); NITRITE,URINE NEG (NEG); PH, URINE 5.5 (5.0-8.5)
[2016-12-03 14:17] LABS: AUTOMATED NEUTROPHIL # 9.1 TH/MM3 (1.8-7.7); BASOPHIL % 0.2 % (0.0-2.0); EOSINOPHIL # 0.1 TH/MM3 (0-0.4); EOSINOPHIL % 0.8 % (0.0-4.0); HEMATOCRIT 37.9 % (35.0-46.0); HEMO FLAGS DIFF FINAL; LYMPHOCYTE # 1.6 TH/MM3 (1.0-4.8); MEAN CELL VOLUME 88.2 FL (80.0-100.0); MEAN CORPUSCULAR HEMOGLOBIN 29.7 PG (27.0-34.0); MEAN CORPUSCULAR HGB CONC 33.7 % (32.0-36.0); MONO % 5.7 % (0.0-8.0); NEUT % 79.3 % (16.0-70.0); PLATELET COUNT 208 TH/MM3 (150-450); RED CELL DISTRIBUTION WIDTH 12.7 % (11.6-17.2); WHITE BLOOD COUNT 11.4 TH/MM3 (4.0-11.0)
[2016-12-03 14:20] LABS: BLOOD, URINE MOD (NEG)
[2016-12-03 14:21] LABS: METHOD OF COLLECTION CATH; URINE COLOR YELLOW (YELLW/STRAW)
[2016-12-03 14:22] LABS: WBC, URINE 0-2 /hpf (0-5)
[2016-12-03 14:23] LABS: CHLORIDE 107 MEQ/L (98-107); POTASSIUM 3.2 MEQ/L (3.5-5.1); SODIUM (NA) 140 MEQ/L (136-145)
[2016-12-03 14:23] LABS: COMMENT (UR) CATH-CULT NOT IND; COMMENT2 (UR) MUCOUS PRESENT; CULTURE IF INDICATED CATH CULTURE NOT IND; HYALINE CAST, URINE 0-2 /lpf (RARE)
[2016-12-03 14:24] LABS: TRANSITIONAL EPI CELLS, URINE 0-5 /hpf
[2016-12-03 14:27] LABS: ANION GAP 7 MEQ/L (5-15); BICARBONATE 26.4 MEQ/L (21.0-32.0); BLOOD UREA NITROGEN 10 MG/DL (7-18)
[2016-12-03 14:29] LABS: APTT (PATIENT) 28.1 SEC (24.3-30.1)
[2016-12-03 14:30] LABS: ALT (GPT) 18 U/L (10-53); AST (GOT) 13 U/L (15-37); GLOMERULAR FILTRATION RATE 89 ML/MIN (>89)
[2016-12-03 14:32] LABS: TOTAL BILIRUBIN ADULT 0.4 MG/DL (0.2-1.0)
[2016-12-03 14:33] LABS: ALKALINE PHOSPHATASE 66 U/L (45-117)
--- NOTE | 2016-12-03 14:45 | RADRPT ---
EXAM DATE/TIME: 12/03/2016 14:35 [facility] COMPARISON: CHEST SINGLE AP, September 12, 2016, 20:25. INDICATIONS : Patient complains of pain and swelling of left side of face/jaw and neck. There is an abcess on left side of chin. MEDICAL HISTORY : Asthma, bipolar, anxiety SURGICAL HISTORY : None. ENCOUNTER: Initial ACUITY: 2 days PAIN SCORE: 10/10 LOCATION: Left Face FINDINGS: A single view of the chest demonstrates the lungs to be symmetrically aerated without evidence of mas s, infiltrate or effusion. The cardiomediastinal contours are unremarkable. Osseous structures are intact. CONCLUSION: No acute disease. No significant change has occurred. Zeyad Villa MD on December 03, 2016 at 14:44 Board Certified Radiologist. This report was verified electronically.
[2016-12-03 15:20] VITALS: BP 140/75; PULSE 90; RESP 16; O2SAT 100
[2016-12-03] MEDS ORDERED: HYDROmorphone HCL PF 2 MG/ML VIAL IVS ONE (15:45)
[2016-12-03] MEDS ORDERED: IOHEXOL 350 MG/ML 10 ML VIAL (for RAD DIAG) IV ONE (15:58)
[2016-12-03] MEDS ORDERED: ACETAMINOPHEN 325 MG TAB PO PRN (16:00)
--- NOTE | 2016-12-03 16:19 | RADRPT ---
EXAM DATE/TIME: 12/03/2016 15:50 [facility] COMPARISON: No previous studies available for comparison. INDICATIONS : Left facial swelling for two days. Left facial and neck pain. Evaluate for abscess. IV CONTRAST: 85 cc Omnipaque 350 (iohexol) IV RADIATION DOSE: 14.63 CTDIvol (mGy) MEDICAL HISTORY : Chronic obstructive pulmonary disease. SURGICAL HISTORY : Tonsillectomy. ENCOUNTER: Initial ACUITY: 2 days PAIN SCALE: 7/10 LOCATION: Left facial TECHNIQUE: Volumetric scanning of the neck was performed. Using automated exposure control and adjustment of th e mA and/or kV according to patient size, radiation dose was kept as low as reasonably achievable to obtain optimal diagnostic quality images. DICOM format image data is available electronically for r eview and comparison. FINDINGS: Significant left sided facial soft tissue swelling is identified extending from upper lip to the chin . There is thickening and induration of the overlying skin. Small developing abscess these are identi fied in the mental region and along the left mandibular body adjacent to the mental region. The under lying left side of the mandible and maxilla are intact without evidence of erosive or destructive bon e changes. There is no significant left-sided dental or periodontal disease. Submandibular lymph nodes ranging in size up to 12 mm are noted. Paranasal sinuses are clear with no significant inflammatory change. NASOPHARYNX: The nasopharyngeal airway has a normal configuration. No mucosal thickening or mass is seen. OROPHARYNX: The intrinsic muscles of the tongue are symmetric. The tonsillar pillars are intact. The prevertebr al soft tissues are not thickened. LARYNX: The supraglottic, glottic, and infraglottic structures are intact. PARAPHARYNGEAL: The parapharyngeal space is intact. SALIVARY GLANDS: The parotid and submandibular glands are intact. LYMPH NODES: No other enlarged or necrotic-appearing nodes. THYROID: Homogeneous enhancement without evidence of nodule. BONES: Unremarkable. CONCLUSION: Left-sided facial and chin soft tissue swelling characteristic of cellulitis. Small radiolucencies within the inflamed soft tissue which are suspicious for small abscesses. No evidence of destructive bone changes. Otherwise unremarkable soft tissues of the neck. Tesfaye Tam MD on December 03, 2016 at 16:07 Board Certified Radiologist. This report was verified electronically.
[2016-12-03 16:20] VITALS: BP 146/89; PULSE 83; RESP 16; TEMP 98.1; O2SAT 100
--- NOTE | 2016-12-03 17:58 | HHI.HP ---
[facility] Service [facility] ([place], [place])ists Primary Care Physician Oswaldo Ruvalcaba MD Admission Diagnosis FACIAL CELLULITIS Diagnoses: Chief Complaint: Swelling in the face Travel History International Travel<30 Days: No Contact w/Intl Traveler <30 Da: No Traveled to Known Affected Are: No History of Present Illness Patient's 41-year-old female with minimal past medical history reports a pimple on her chin which she broke open and then had subsequent increased swelling and erythema which progressed rather rapidly. She has subjective chills and fevers and came to the emergency room. Soft tissue is quite edematous and erythematous from the left side of her cheek all the way into the submental and throat area. There is a large fluctuant pustule area on the chin. Face is grossly symmetrical. She has had difficulties swallowing. Patient was not taking any antibiotics at home and came to the emergency room. Here she was given IV antibiotics. CT of the head was done also. She is recommended to stay in the hospital for antibiotics over the patient declined this admission and discharged herself AGAINST MEDICAL ADVICE. Review of Systems Constitutional: DENIES: Diaphoretic episodes, Fatigue, Fever, Weight gain, Weight loss, Chills, Dizziness, Change in appetite, Night Sweats Endocrine: DENIES: Abnorml menstrual pattern, Heat/cold intolerance, Polydipsia , Polyuria, Polyphagia Eyes: DENIES: Blurred vision, Diplopia, Eye inflammation, Eye pain, Vision loss , Photosensitivity, Double Vision Ears, nose, mouth, throat: DENIES: Tinnitus, Hearing loss, Vertigo, Nasal discharge, Oral lesions, Throat pain, Hoarseness, Ear Pain, Running Nose, Epistaxis, Sinus Pain, Toothache, Odynophagia Respiratory: DENIES: Apneas, Cough, Snoring, Wheezing, Hemoptysis, Sputum production, Shortness of breath Cardiovascular: DENIES: Chest pain, Palpitations, Syncope, Dyspnea on Exertion , PND, Lower Extremity Edema, Orthopnea, Claudication Gastrointestinal: DENIES: Abdominal pain, Black stools, Bloody stools, Constipation, Diarrhea, Nausea, Vomiting, Difficulty Swallowing, Anorexia Genitourinary: DENIES: Abnormal vaginal bleeding, Dysmenorrhea, Dyspareunia, Sexual dysfunction, Urinary frequency, Urinary incontinence, Urgency, Hematuria , Dysuria, Nocturia, Vaginal discharge Integumentary: DENIES: Abnormal pigmentation, Pruritus, Rash, Nail changes, Breast masses, Breast skin changes, Nipple discharge Hematologic/lymphatic: DENIES: Bruising, Lymphadenopathy Immunologic/allergic: DENIES: Eczema, Urticaria Neurologic: DENIES: Abnormal gait, Headache, Localized weakness, Paresthesias, Seizures, Speech Problems, Tremor, Poor Balance Psychiatric: DENIES: Anxiety, Confusion, Mood changes, Depression, Hallucinations, Agitation, Suicidal Ideation, Homicidal Ideation, Delusions Except as stated in HPI: all other systems reviewed are Neg Past Family Social History Past Medical History Anxiety ADHD Past Surgical History Cholecystectomy, dental extraction, tonsillectomy Reported Medications Reviewed in the medical record Allergies: Coded Allergies: Sulfa (Verified Allergy, Intermediate, HIVES, 12/03/16) Active Ordered Medications Reviewed in the medical record Family History No diabetes or hypertension Social History Smokes a half pack per day, lives with her parents, no alcohol Physical Exam Vital Signs Vital Signs Date Time Temp Pulse Resp B/P Pulse Ox O2 Delivery O2 Flow Rate FiO2 12/03/16 16:20 98.1 83 16 146/89 100 12/03/16 15:20 90 16 140/75 100 12/03/16 14:10 85 16 143/90 99 12/03/16 13:25 98.5 92 20 145/95 97 Physical Exam GENERAL: This is a well-nourished, well-developed patient, in no apparent distress. SKIN: large amount of cellulitis in left face, throat, chin and cheek, with asymmetry HEAD: Atraumatic. Normocephalic. No temporal or scalp tenderness. EYES: Pupils equal round and reactive. Extraocular motions intact. No scleral icterus. No injection or drainage. ENT: Nose without bleeding, purulent drainage or septal hematoma. Throat without erythema, tonsillar hypertrophy or exudate. Uvula midline. Airway patent. NECK: Trachea midline. No JVD or lymphadenopathy. Supple, nontender, no meningeal signs. CARDIOVASCULAR: Regular rate and rhythm without murmurs, gallops, or rubs. RESPIRATORY: Clear to auscultation. Breath sounds equal bilaterally. No wheezes , rales, or rhonchi. GASTROINTESTINAL: Abdomen soft, non-tender, nondistended. No hepato-splenomegaly , or palpable masses. No guarding. MUSCULOSKELETAL: Extremities without clubbing, cyanosis, or edema. No joint tenderness, effusion, or edema noted. No calf tenderness. Negative Homans sign bilaterally. NEUROLOGICAL: Awake and alert. Cranial nerves II through XII intact. Motor and sensory grossly within normal limits. Five out of 5 muscle strength in all muscle groups. Normal speech. Laboratory Laboratory Tests Test 12/03/16 12/03/16 13:50 13:56 White Blood Count 11.4 Red Blood Count 4.30 Hemoglobin 12.8 Hematocrit 37.9 Mean Corpuscular Volume 88.2 Mean Corpuscular Hemoglobin 29.7 Mean Corpuscular Hemoglobin 33.7 Concent Red Cell Distribution Width 12.7 Platelet Count 208 Mean Platelet Volume 7.6 Neutrophils (%) (Auto) 79.3 Lymphocytes (%) (Auto) 14.0 Monocytes (%) (Auto) 5.7 Eosinophils (%) (Auto) 0.8 Basophils (%) (Auto) 0.2 Neutrophils # (Auto) 9.1 Lymphocytes # (Auto) 1.6 Monocytes # (Auto) 0.6 Eosinophils # (Auto) 0.1 Basophils # (Auto) 0.0 CBC Comment DIFF FINAL Differential Comment Prothrombin Time 11.0 Prothromb Time International 1.0 Ratio Activated Partial 28.1 Thromboplast Time Sodium Level 140 Potassium Level 3.2 Chloride Level 107 Carbon Dioxide Level 26.4 Anion Gap 7 Blood Urea Nitrogen 10 Creatinine 0.73 Estimat Glomerular Filtration 89 Rate Random Glucose 109 Lactic Acid Level 1.9 Calcium Level 7.6 Total Bilirubin 0.4 Aspartate Amino Transf 13 (AST/SGOT) Alanine Aminotransferase 18 (ALT/SGPT) Alkaline Phosphatase 66 Troponin I LESS THAN 0.02 Total Protein 6.5 Albumin 3.0 Urine Collection Type CATH Urine Color YELLOW Urine Turbidity SLIGHT Urine pH 5.5 Urine Specific [place] 1.034 Urine Protein TRACE Urine Glucose (UA) NEG Urine Ketones TRACE Urine Occult Blood MOD Urine Nitrite NEG Urine Bilirubin NEG Urine Leukocyte Esterase NEG Urine RBC 4-9 Urine WBC 0-2 Urine Squamous Epithelial 6-8 Cells Urine Transitional Epithelial 0-5 Cells Urine Amorphous Sediment MOD Urine Hyaline Casts 0-2 Urine Coarse Granular Casts 0-2 Microscopic Urinalysis Comment CATH-CULT NOT IND Urine Collection Time 1356 Date/Time Procedure Status Source Growth 12/03/16 13:55 Aerobic Blood Culture Received Blood Peripheral Pending 12/03/16 13:55 Anaerobic Blood Culture Received Blood Peripheral Pending Result Diagram: 12/03/16 1350 12/03/16 1350 Imaging Last Impressions Chest X-Ray 12/03/16 1342 Signed Impressions: Service Date/Time: Saturday, December 03, 2016 14:35 - CONCLUSION: No acute disease. No significant change has occurred. Zeyad Villa MD Neck CT 12/03/16 0000 Signed Impressions: Service Date/Time: Saturday, December 03, 2016 15:50 - CONCLUSION: Left-sided facial and chin soft tissue swelling characteristic of cellulitis. Small radiolucencies within the inflamed soft tissue which are suspicious for small abscesses. No evidence of destructive bone changes. Otherwise unremarkable soft tissues of the neck. Tesfaye Tam MD Assessment and Plan Problem List: (1) Facial cellulitis ICD Code: L03.211 Status: Acute Plan: Will need IV abx due to sever infection Patient has decided to leave A Physician Certification 2 Midnight Certification Type: Admission for Inpatient Services Order for Inpatient Services The services are ordered in accordance with Medicare regulations or non- Medicare payer requirements, as applicable. In the case of services not specified as inpatient-only, they are appropriately provided as inpatient services in accordance with the 2-midnight benchmark. Estimated LOS (days): 2 2 days is the estimated time the patient will need to remain in the hospital, assuming treatment plan goals are met and no additional complications. Post-Hospital Plan: Susana Chi MD Dec 03, 2016 17:58
[2016-12-03] MEDS ORDERED: CLINDAMYCIN INJ 600 MG in SODIUM CHLORIDE 0.9% INJ 100 ML IV SCH (22:00)
[2016-12-04] MEDS ORDERED: PROZ40CA PO (23:24)
== END 2016-12-03 17:56 | disposition left against medical advice (07) | DRG 603 ==
LOC: PHED 13:22 → PHEDA 15:49 → OBSVTOIN 15:51
PROVIDERS: ADMIT Hospitalist; ATTEND Hospitalist
DX: L03.211 Cellulitis of face (principal); F41.9 Anxiety disorder, unspecified; F17.210 Nicotine dependence, cigarettes, uncomplicated
CPT/HCPCS: 70491; 71010; 80053; 81001; 83605; 84484; 85025; 85610; 85730; 87040; 96365; 96375; 96376; J1170; J2405; J2543; Q9967

== ENCOUNTER 2016-12-04 22:13 | Inpatient (IN) | payer OTHER, MEDICARE ==
[~2016-12-04] VITALS: Ht 165.1 cm; Wt 80.3 kg
[2016-12-04 22:32] VITALS: BP 173/112; PULSE 113; RESP 20; TEMP 99.1; O2SAT 98
[2016-12-04] MEDS ORDERED: PROZ40CA PO (23:24)
--- NOTE | 2016-12-05 00:12 | PD ---
HPI Chief Complaint: Skin Problem Time Seen by Provider: 23:55 Travel History International Travel<30 days: No Contact w/Intl Traveler<30days: No Traveled to known affect area: No History of Present Illness HPI The patient is a 41-year-old female with a history of recent cocaine abuse who had a pimple on her chin which she broke open and subsequent swelling and erythema progressed rapidly. She had chills and fevers and came to emergency department yesterday. Swelling was noted on the left side of her cheek all the way to the submental and throat area and she had difficulty swallowing. The patient was given IV antibiotics and a CT of the head was done and blood cultures were done but the patient signed out AGAINST MEDICAL ADVICE yesterday. She denies IV drug abuse. The patient can take by mouth liquids and food. She denies any airway obstruction. PFSH Past Medical History Arthritis: No Asthma: Yes Autoimmune Disease: No Blood Disorders: No Bipolar Disorder: Yes Anxiety: Yes Depression: Yes Heart Rhythm Problems: No Cancer: No Cardiovascular Problems: No High Cholesterol: No Chemotherapy: No Chest Pain: No Congestive Heart Failure: No COPD: Yes Cerebrovascular Accident: No Diabetes: No Diminished Hearing: No Endocrine: No Gastrointestinal Disorders: Yes (IRRITABLE BOWEL SYNDROME) GERD: No Glaucoma: No Genitourinary: No Headaches: No Hepatitis: No Hiatal Hernia: No Immune Disorder: No Implanted Vascular Access Dvce: No Kidney Stones: No Musculoskeletal: Yes (RESTLESS LEG SYNDROME) Neurologic: Yes Psychiatric: Yes Reproductive: No Respiratory: Yes Migraines: Yes Myocardial Infarction: No Radiation Therapy: No Renal Failure: No Schizophrenia: Yes Seizures: No Sickle Cell Disease: No Sleep Apnea: No Thyroid Disease: No Ulcer: No ?: Not LMP: 12/02/16 : 3 Miscarriage: 1 : 2 Past Surgical History Abdominal Surgery: No AICD: No Cardiac Surgery: No Cholecystectomy: Yes Ear Surgery: No Endocrine Surgery: No Eye Surgery: No Genitourinary Surgery: No Gynecologic Surgery: No Joint Replacement: No Oral Surgery: Yes (WISDOM TEETH; DENTAL SX) Pacemaker: No Thoracic Surgery: No Tonsillectomy: Yes (1983) Other Surgery: Yes (TONSILS OUT, 1983) Social History Alcohol Use: Yes (once in a while) Tobacco Use: Yes (/2 PPD) Substance Use: No (DENIES) Allergies-Medications (Allergen,Severity, Reaction): Coded Allergies: Sulfa (Verified Allergy, Intermediate, HIVES, 12/04/16) Reported Meds & Prescriptions Reported Meds & Active Scripts Active Reported Prozac (Fluoxetine HCl) 40 Mg Cap 60 Mg PO DAILY Multiple Vitamin 1 Tab 1 Tab PO DAILY Trazodone (Trazodone HCl) 150 Mg Tablet 150 Mg PO HS Klonopin (Clonazepam) 2 Mg Tab 2 Mg PO TID Proair Hfa 8.5 GM Inh (Albuterol Sulfate) 90 Mcg/Act Aer 1 Puff INH Q4H PRN 108 mcg/actuation Abilify (Aripiprazole) 10 Mg Tab 10 Mg PO DAILY Review of Systems Except as stated in HPI: all other systems reviewed are Neg Physical Exam Narrative GENERAL: The patient is alert, oriented 3 in moderate apparent distress with her fifth left facial/chin pain. Her vital signs show pulse rate of 113, temperature 99.1 and blood pressure 173/112 but otherwise normal. SKIN: Focused skin assessment warm/dry. There is a 10-12 cm diameter area of facial cellulitis which surrounds a pimple on the left chin. There is considerable swelling in this area. HEAD: Atraumatic. Normocephalic. EYES: Pupils equal and round. No scleral icterus. No injection or drainage. ENT: No nasal bleeding or discharge. Mucous membranes pink and moist. NECK: Trachea midline. No JVD. CARDIOVASCULAR: Regular rate and rhythm. No murmur appreciated. RESPIRATORY: No accessory muscle use. Clear to auscultation. Breath sounds equal bilaterally. GASTROINTESTINAL: Abdomen soft, non-tender, nondistended. Hepatic and splenic margins not palpable. MUSCULOSKELETAL: No obvious deformities. No clubbing. No cyanosis. No edema. NEUROLOGICAL: Awake and alert. No obvious cranial nerve deficits. Motor grossly within normal limits. Normal speech. PSYCHIATRIC: The patient is anxious; insight and judgment normal. Data Data Last Documented VS Vital Signs Date Time Temp Pulse Resp B/P Pulse Ox O2 Delivery O2 Flow Rate FiO2 12/04/16 22:32 99.1 113 20 173/112 98 Orders Complete Blood Count With Diff (12/05/16 00:02) Comprehensive Metabolic Panel (12/05/16 00:02) Urinalysis - C+S If Indicated (12/05/16 00:02) Ed Urine Pregnancytest Poc (12/05/16 00:02) Drug Screen, Random Urine (12/05/16 00:02) Admit Order (Ed Use Only) (12/05/16 00:43) Labs Laboratory Tests Test 12/05/16 12/05/16 00:10 00:15 Urine Color FRED Urine Turbidity CLEAR Urine pH 5.5 Urine Specific [place] GREATER THAN 1.035 Urine Protein TRACE mg/dL Urine Glucose (UA) NEG mg/dL Urine Ketones TRACE mg/dL Urine Occult Blood NEG Urine Nitrite NEG Urine Bilirubin NEG Urine Leukocyte Esterase NEG Urine RBC 0-3 /hpf Urine WBC 0-2 /hpf Urine Squamous Epithelial 0-5 /hpf Cells Urine Bacteria NONE /hpf Microscopic Urinalysis Comment CULT NOT INDICATED Urine Opiates Screen POS Urine Barbiturates Screen NEG Urine Amphetamines Screen NEG Urine Benzodiazepines Screen POS Urine Cocaine Screen POS Urine Cannabinoids Screen NEG White Blood Count 9.3 TH/MM3 Red Blood Count 4.30 MIL/MM3 Hemoglobin 12.8 GM/DL Hematocrit 37.5 % Mean Corpuscular Volume 87.2 FL Mean Corpuscular Hemoglobin 29.8 PG Mean Corpuscular Hemoglobin 34.1 % Concent Red Cell Distribution Width 12.5 % Platelet Count 270 TH/MM3 Mean Platelet Volume 7.0 FL Neutrophils (%) (Auto) 78.1 % Lymphocytes (%) (Auto) 15.0 % Monocytes (%) (Auto) 4.3 % Eosinophils (%) (Auto) 2.2 % Basophils (%) (Auto) 0.4 % Neutrophils # (Auto) 7.3 TH/MM3 Lymphocytes # (Auto) 1.4 TH/MM3 Monocytes # (Auto) 0.4 TH/MM3 Eosinophils # (Auto) 0.2 TH/MM3 Basophils # (Auto) 0.0 TH/MM3 CBC Comment DIFF FINAL Differential Comment Sodium Level 138 MEQ/L Potassium Level 3.2 MEQ/L Chloride Level 103 MEQ/L Carbon Dioxide Level 29.6 MEQ/L Anion Gap 5 MEQ/L Blood Urea Nitrogen 13 MG/DL Random Glucose 89 MG/DL Calcium Level 8.1 MG/DL Albumin 3.0 GM/DL MDM Medical Decision Making Medical Screen Exam Complete: Yes Emergency Medical Condition: Yes Medical Record Reviewed: Yes Interpretation(s) The CBC is normal except for 78% neutrophils. The toxicology screen is positive for opiates, benzodiazepines and cocaine. The urine shows frde color , specific gravity of greater than 1.035, trace ketones but is otherwise normal and culture is not indicated. Differential Diagnosis Polysubstance abuse, drug seeking behavior, facial cellulitis, Kadeem's angina unlikely, airway compromise, esophageal compromise, facial abscess Narrative Course The patient has facial cellulitis and polysubstance abuse. It is hoped that she will remain in the hospital this time so that we can adequately treat her. Diagnosis Primary Impression: Facial cellulitis Additional Impression: Polysubstance abuse Admitting Information Admitting Physician Requests: Admit Bull Gabriel MD Dec 05, 2016 00:12
[2016-12-05 00:28] LABS: BLOOD, URINE NEG (NEG); GLUCOSE,URINE NEG (NEG); KETONE, URINE TRACE mg/dL (NEG); NITRITE,URINE NEG (NEG); PH, URINE 5.5 (5.0-8.5)
[2016-12-05 00:28] LABS: AUTOMATED NEUTROPHIL # 7.3 TH/MM3 (1.8-7.7); BASOPHIL % 0.4 % (0.0-2.0); EOSINOPHIL # 0.2 TH/MM3 (0-0.4); EOSINOPHIL % 2.2 % (0.0-4.0); HEMATOCRIT 37.5 % (35.0-46.0); LYMPHOCYTE # 1.4 TH/MM3 (1.0-4.8); MEAN CELL VOLUME 87.2 FL (80.0-100.0); MEAN CORPUSCULAR HEMOGLOBIN 29.8 PG (27.0-34.0); MEAN CORPUSCULAR HGB CONC 34.1 % (32.0-36.0); MONO % 4.3 % (0.0-8.0); NEUT % 78.1 % (16.0-70.0); PLATELET COUNT 270 TH/MM3 (150-450); RED CELL DISTRIBUTION WIDTH 12.5 % (11.6-17.2); WHITE BLOOD COUNT 9.3 TH/MM3 (4.0-11.0)
[2016-12-05 00:31] LABS: HEMO FLAGS DIFF FINAL
[2016-12-05 00:37] LABS: AMPHETAMINE, URINE NEG (NEG); BARBITURATES, URINE NEG (NEG)
[2016-12-05 00:38] LABS: COCAINE, URINE POS (NEG)
[2016-12-05 00:39] LABS: CHLORIDE 103 MEQ/L (98-107); POTASSIUM 3.2 MEQ/L (3.5-5.1); SODIUM (NA) 138 MEQ/L (136-145)
[2016-12-05 00:40] LABS: URINE COLOR AMBER (YELLW/STRAW)
[2016-12-05 00:41] LABS: COMMENT (UR) CULT NOT INDICATED; COMMENT2 (UR) MUCOUS PRESENT; CULTURE IF INDICATED CULT NOT INDICATED; RBC, URINE 0-3 /hpf (0-3); SQUAMOUS EPITHELIAL CELL URINE 0-5 /hpf (0-5); WBC, URINE 0-2 /hpf (0-5)
[2016-12-05 00:42] LABS: ANION GAP 5 MEQ/L (5-15); BICARBONATE 29.6 MEQ/L (21.0-32.0)
[2016-12-05 00:43] LABS: BLOOD UREA NITROGEN 13 MG/DL (7-18)
[2016-12-05] MEDS ORDERED: NALOXONE HCL 0.4 MG/ML AMP IV PRN (00:45)
[2016-12-05] MEDS ORDERED: ONDANSETRON HCL 4 MG/2 ML VIAL IVP PRN (00:45)
[2016-12-05] MEDS ORDERED: SODIUM CHLORIDE 0.9% FLUSH 10 ML FLUSH IV FLUSH PRN (00:45)
[2016-12-05] MEDS ORDERED: ACETAMINOPHEN 325 MG TAB PO PRN (00:45)
[2016-12-05] MEDS ORDERED: VANCOMYCIN INJ 1,250 MG in SODIUM CHLOR 0.9% 250 ML INJ 250 ML IV ONE (01:00)
[2016-12-05] MEDS: CLINDAMYCIN INJ 900 MG in SODIUM CHLORIDE 0.9% INJ 100 ML IV SCH ×4 (01:04→20:00)
[2016-12-05 01:05] LABS: ALKALINE PHOSPHATASE 88 U/L (45-117); ALT (GPT) 47 U/L (10-53); AST (GOT) 31 U/L (15-37); GLOMERULAR FILTRATION RATE 100 ML/MIN (>89); TOTAL BILIRUBIN ADULT 0.3 MG/DL (0.2-1.0)
[2016-12-05 01:39] VITALS: BP 134/81; PULSE 93; RESP 18; O2SAT 97
[2016-12-05 03:00] VITALS: BP 132/102; PULSE 91; RESP 18; TEMP 98; O2SAT 94
[2016-12-05 08:00] VITALS: BP 145/87; PULSE 85; RESP 19; TEMP 98; O2SAT 92
[2016-12-05] MEDS: ENOXAPARIN SODIUM 40 MG/0.4 ML SYRINGE SQ SCH ×2 (09:00→09:22)
[2016-12-05] MEDS: SODIUM CHLORIDE 0.9% FLUSH 10 ML FLUSH IV FLUSH SCH ×2 (09:22→21:00)
[2016-12-05 12:00] VITALS: BP 139/85; PULSE 81; RESP 18; TEMP 97.8; O2SAT 93
--- NOTE | 2016-12-05 13:41 | HHI.PR ---
Addendum To [facility] Progress Not Reason for addendum: Additonal documentation (Patient H and P completed 12/03, updated to reflect a return to the ER and worsening swelling. Patient left AMA and used cocaine. Now with more pain and desire for treatment, BC 12/03 are neg to date. See progressnote.) Susana Garza MD Dec 05, 2016 13:41
[2016-12-05] MEDS ORDERED: VANCOMYCIN INJ 1,000 MG in SODIUM CHLOR 0.9% 250 ML INJ 250 ML IV SCH (13:45)
[2016-12-05] MEDS ORDERED: cloNIDine HCL 0.1 MG TAB PO PRN (13:45)
[2016-12-05] MEDS ORDERED: Vancomycin Consult Pharmacy 1 EA OTHER SCH (13:45)
--- NOTE | 2016-12-05 13:48 | HHI.PR ---
Subjective Remarks Patient seen in follow up after return to ER (left AMA 12/03) Increased pain and increased swelling No leucocytosis and no fever Objective Vitals Vital Signs Date Time Temp Pulse Resp B/P Pulse Ox O2 Delivery O2 Flow Rate FiO2 12/05/16 12:00 97.8 81 18 139/85 93 12/05/16 08:00 98.0 85 19 145/87 92 12/05/16 03:00 98.0 91 18 132/102 94 12/05/16 01:39 93 18 134/81 97 Room Air 12/04/16 22:32 99.1 113 20 173/112 98 I/O 12/04/16 12/04/16 12/04/16 12/05/16 12/05/16 12/05/16 07:00 15:00 23:00 07:00 15:00 23:00 Intake Total 590 ml Balance 590 ml Intake Oral 240 ml IV Total 350 ml Result Diagram: 12/05/16 0015 12/05/16 0015 Objective Remarks Asymmetrical jaw, chin, with submental fluctuance, Erythema and edema GENERAL: This is a well-nourished, well-developed patient, in no apparent distress. CARDIOVASCULAR: Regular rate and rhythm without murmurs, gallops, or rubs. RESPIRATORY: Clear to auscultation. Breath sounds equal bilaterally. No wheezes , rales, or rhonchi. GASTROINTESTINAL: Abdomen soft, non-tender, nondistended. Normal active bowel sounds MUSCULOSKELETAL: Extremities without clubbing, cyanosis, or edema. NEURO: Alert & Oriented x4 to person, place, time, situation. Moves all ext x4 A/P Problem List: (1) Facial cellulitis ICD Code: L03.211 Status: Acute Plan: Vanco, Clinda IV CT completed 12/03 in ER, and today she objectively appears worse since my previous exam (ptn left ama) ENT eval for possible drainage of submental abscess (2) Polysubstance abuse ICD Code: F19.10 Status: Acute Plan: Cocaine, benzos watch for withdrawal (3) Elevated BP without diagnosis of hypertension ICD Code: R03.0 Status: Acute Plan: may be pain, anxiety or withdrawal Clonidine prn avoid escalating narcotics Assessment and Plan [facility] Susana Garza MD Dec 05, 2016 13:48
[2016-12-05 16:00] VITALS: BP 130/99; PULSE 79; RESP 17; TEMP 98.1; O2SAT 95
[2016-12-05] MEDS: VANCOMYCIN INJ 1,250 MG in SODIUM CHLOR 0.9% 250 ML INJ 250 ML IV SCH (16:49)
[2016-12-05 20:00] VITALS: BP 111/84; PULSE 81; RESP 16; TEMP 98.8; O2SAT 95
--- NOTE | 2016-12-05 21:08 | MB ---
cc: JUVENAL TRACY MD DATE OF CONSULTATION 12/05/16 CHIEF COMPLAINT A 41-year-old female who apparently reported to the emergency room two days ago with swelling in her left face, chin and cheek area from what she describes as a pimple, possibly an insect bite, that continued to swell and became fluctuant. She went into the emergency room and was admitted, was then told she needed to be admitted and get IV antibiotics. However, she left against medical advice and then proceeded to go home and take cocaine for the next two days. She subsequently reported back to the hospital today with worsening swelling of her face and chin. She tells me that it started draining several hours ago and has continued to start draining. She reports that the last day that she used cocaine was a little over one day ago. PAST MEDICAL HISTORY Significant for anxiety. PAST SURGICAL HISTORY 1. Dental extractions 2. Cholecystectomy. ALLERGIES SULFA SOCIAL HISTORY Illegal drugs and alcohol. PHYSICAL EXAMINATION GENERAL: The patient is resting comfortably in bed. She has a warm compress to her face. She has significant erythema over the omentum as well as thinning on the left mandible area with no obvious fluctuance noted. HEENT: The oral cavity exam reveals the floor of mouth is soft. There is no evidence of blood The dentition actually looks appropriate along the left mandible. There is some very significant tenderness along the left mandible intraorally however, but along the lingual surface of the mandible there is no tenderness upon palpation. There is no significant fluctuance to the omentum. However, there is a draining wound. NECK: Exam reveals some edema along the level II area and level I. There is some weakness obviously of the marginal mandibular nerve on the left. LUNGS: Clear to auscultation. HEART: Regular rate and rhythm. LABORATORY DATA There is a white blood cell count of 9.3. ASSESSMENT/PLAN The patient with draining abscess in omentum. Recommend continued IV antibiotics with the current selection as well as significant warm compresses. Recommend infectious disease consult. It may also be beneficial to have oral surgery evaluate her for possible osteomyelitis of that left mandible. At this time, the patient will continue to be monitored for polysubstance abuse withdrawal, according to the primary physician, which is likely adding to the difficulty that she is experiencing with this facial cellulitis and edema. She understands the need to stay in the hospital. I have reinforced with her explicitly should she leave the hospital again AMA and would likely require and cause her significant damage to her mandible and lower face. She needs to stay in the hospital for her IV antibiotic therapy. She is reporting that she understands this and is going to continue to do. Thank you for this consultation. Juvenal Tracy AT/ /8:06 PM /8:55 PM
[2016-12-05] MEDS ORDERED: LORazepam 2 MG/ML VIAL IV PUSH PRN (22:45)
[2016-12-05] MEDS ORDERED: traZODone HCL 50 MG TAB PO ONE (22:45)
[2016-12-05] MEDS: LORazepam 1 MG TAB PO PRN (22:47)
[2016-12-06] MEDS: CLINDAMYCIN INJ 900 MG in SODIUM CHLORIDE 0.9% INJ 100 ML IV SCH ×4 (00:46→18:03)
[2016-12-06] MEDS: KETOROLAC TROMETHAMINE 60 MG/2 ML (IM) VIAL IM PRN ×2 (00:53→22:23)
[2016-12-06] MEDS: VANCOMYCIN INJ 1,250 MG in SODIUM CHLOR 0.9% 250 ML INJ 250 ML IV SCH ×2 (04:00→15:29)
[2016-12-06 06:40] LABS: AUTOMATED NEUTROPHIL # 3.1 TH/MM3 (1.8-7.7); BASOPHIL % 0.6 % (0.0-2.0); EOSINOPHIL # 0.2 TH/MM3 (0-0.4); HEMO FLAGS DIFF FINAL; LYMPH % 31.7 % (9.0-44.0); LYMPHOCYTE # 1.7 TH/MM3 (1.0-4.8); MEAN CELL VOLUME 88.5 FL (80.0-100.0); MEAN CORPUSCULAR HEMOGLOBIN 28.1 PG (27.0-34.0); MEAN CORPUSCULAR HGB CONC 31.8 % (32.0-36.0); NEUT % 55.7 % (16.0-70.0); PLATELET COUNT 255 TH/MM3 (150-450); POTASSIUM 3.1 MEQ/L (3.5-5.1); RED BLOOD COUNT 4.17 MIL/MM3 (4.00-5.30); RED CELL DISTRIBUTION WIDTH 12.4 % (11.6-17.2); WHITE BLOOD COUNT 5.4 TH/MM3 (4.0-11.0)
[2016-12-06 06:44] LABS: BICARBONATE 26.1 MEQ/L (21.0-32.0)
[2016-12-06 08:00] VITALS: BP 120/71; PULSE 71; RESP 18; TEMP 98; O2SAT 95
[2016-12-06] MEDS: ENOXAPARIN SODIUM 40 MG/0.4 ML SYRINGE SQ SCH (08:21)
[2016-12-06] MEDS: SODIUM CHLORIDE 0.9% FLUSH 10 ML FLUSH IV FLUSH SCH ×2 (08:22→20:27)
--- NOTE | 2016-12-06 11:42 | HHI.PR ---
Subjective Remarks Follow-up facial cellulitis/submental abscess 12/06/16-patient seen and examined; complains of facial pain. Currently afebrile. Oral facial surgeon recommended follow up outpatient Objective Vitals Vital Signs Date Time Temp Pulse Resp B/P Pulse Ox O2 Delivery O2 Flow Rate FiO2 12/06/16 08:00 98.0 71 18 120/71 95 12/06/16 00:00 12/05/16 20:00 98.8 81 16 111/84 95 12/05/16 16:00 98.1 79 17 130/99 95 12/05/16 12:00 97.8 81 18 139/85 93 I/O 12/05/16 12/05/16 12/05/16 12/06/16 12/06/16 12/06/16 07:00 15:00 23:00 07:00 15:00 23:00 Intake Total 590 ml 483 ml 225 ml 100 ml Balance 590 ml 483 ml 225 ml 100 ml Intake Oral 240 ml 125 ml IV Total 350 ml 483 ml 100 ml 100 ml # Voids 3 Result Diagram: 12/06/16 0515 12/06/16 0515 Objective Remarks GENERAL: NAD SKIN: Asymmetrical jaw, chin, with submental fluctuance, Erythema and edema HEAD: Normocephalic. EYES: No scleral icterus. No injection or drainage. NECK: Supple, trachea midline. No JVD or lymphadenopathy. CARDIOVASCULAR: Regular rate and rhythm without murmurs, gallops, or rubs. RESPIRATORY: Breath sounds equal bilaterally. No accessory muscle use. GASTROINTESTINAL: Abdomen soft, non-tender, nondistended. MUSCULOSKELETAL: No cyanosis, or edema. BACK: Nontender without obvious deformity. No CVA tenderness. A/P Problem List: (1) Facial cellulitis ICD Code: L03.211 Status: Acute (2) Polysubstance abuse ICD Code: F19.10 Status: Acute (3) Elevated BP without diagnosis of hypertension ICD Code: R03.0 Status: Acute Assessment and Plan 41 year-old female with Facial cellulitis Submental abscess Boils Currently on clindamycin and vancomycin IV Appreciate input from ENT Oral facial surgeon recommends continue current management, follow-up outpatient next week Obtain culture from boils Pain management accordingly Polysubstance abuse UDS positive for cocaine Patient advised against DVT prophylaxis: Bilateral SCDs Discharge Planning Likely discharge 12/07/16 Jose Crowley MD Dec 06, 2016 11:42
[2016-12-06 12:00] VITALS: BP 154/79; PULSE 81; RESP 20; TEMP 97.6; O2SAT 92
[2016-12-06 16:00] VITALS: BP 134/79; PULSE 81; RESP 19; TEMP 98.1; O2SAT 98
[2016-12-06] MEDS: LORazepam 1 MG TAB PO PRN (19:27)
[2016-12-06 20:11] VITALS: BP 138/95; PULSE 82; RESP 16; TEMP 99.8; O2SAT 100
[2016-12-06] MEDS ORDERED: traZODone HCL 50 MG TAB PO ONE (22:15)
[2016-12-07 00:33] VITALS: BP 134/86; PULSE 78; RESP 14; TEMP 99.7; O2SAT 96
[2016-12-07] MEDS: CLINDAMYCIN INJ 900 MG in SODIUM CHLORIDE 0.9% INJ 100 ML IV SCH ×4 (00:43→16:52)
[2016-12-07] MEDS ORDERED: VANCOMYCIN TROUGH ONE (03:45)
[2016-12-07] MEDS: VANCOMYCIN INJ 1,250 MG in SODIUM CHLOR 0.9% 250 ML INJ 250 ML IV SCH ×3 (04:52→20:37)
[2016-12-07 08:00] VITALS: BP 148/102; PULSE 80; RESP 20; TEMP 97.2; O2SAT 96
--- NOTE | 2016-12-07 08:15 | HHI.PR ---
Subjective Remarks Follow-up facial cellulitis/submental abscess 12/06/16-patient seen and examined; complains of facial pain. Currently afebrile. Oral facial surgeon recommended follow up outpatient 12/07/16-patient seen and examined; had low-grade temps overnight. Submental abscess hardening Objective Vitals Vital Signs Date Time Temp Pulse Resp B/P Pulse Ox O2 Delivery O2 Flow Rate FiO2 12/07/16 00:33 99.7 78 14 134/86 96 12/06/16 20:11 99.8 82 16 138/95 100 12/06/16 16:00 98.1 81 19 134/79 98 12/06/16 12:00 97.6 81 20 154/79 92 I/O 12/06/16 12/06/16 12/06/16 12/07/16 12/07/16 12/07/16 07:00 15:00 23:00 07:00 15:00 23:00 Intake Total 100 ml 100 ml 248 ml Balance 100 ml 100 ml 248 ml IV Total 100 ml 100 ml 248 ml # Voids 4 1 1 Result Diagram: 12/06/16 0515 12/07/16 0400 Objective Remarks GENERAL: NAD SKIN: Asymmetrical jaw, chin, with submental hardening abscess, with some surrounding Erythema HEAD: Normocephalic. EYES: No scleral icterus. No injection or drainage. NECK: Supple, trachea midline. No JVD or lymphadenopathy. CARDIOVASCULAR: Regular rate and rhythm without murmurs, gallops, or rubs. RESPIRATORY: Breath sounds equal bilaterally. No accessory muscle use. GASTROINTESTINAL: Abdomen soft, non-tender, nondistended. MUSCULOSKELETAL: No cyanosis, or edema. BACK: Nontender without obvious deformity. No CVA tenderness. A/P Problem List: (1) Facial cellulitis ICD Code: L03.211 Status: Acute (2) Polysubstance abuse ICD Code: F19.10 Status: Acute (3) Elevated BP without diagnosis of hypertension ICD Code: R03.0 Status: Acute Assessment and Plan 41 year-old female with Facial cellulitis Submental abscess Boils Continue clindamycin and vancomycin IV Appreciate input from ENT Oral facial surgeon recommends continue current management, follow-up outpatient next week Obtain culture from boils if possible Pain management accordingly Polysubstance abuse UDS positive for cocaine Patient advised against DVT prophylaxis: Bilateral SCDs Discharge Planning Likely discharge 12/07/16 Jose Crowley MD Dec 07, 2016 08:15
[2016-12-07] MEDS: SODIUM CHLORIDE 0.9% FLUSH 10 ML FLUSH IV FLUSH SCH ×2 (09:52→20:38)
[2016-12-07] MEDS: ENOXAPARIN SODIUM 40 MG/0.4 ML SYRINGE SQ SCH (09:53)
[2016-12-07 12:00] VITALS: BP 158/103; PULSE 81; RESP 19; TEMP 98.4; O2SAT 97
[2016-12-07] MEDS: LORazepam 1 MG TAB PO PRN ×2 (13:28→20:36)
[2016-12-07 16:00] VITALS: BP_SYST 158; BP_SYST 160; BP_DIAS 109; BP_DIAS 78; PULSE 78; RESP 19; TEMP 97.8; O2SAT 97
[2016-12-07 20:47] VITALS: BP 156/90; PULSE 85; RESP 18; TEMP 98.1; O2SAT 91
[2016-12-07] MEDS ORDERED: traZODone HCL 50 MG TAB PO SCH (22:00)
[2016-12-07] MEDS ORDERED: KETOROLAC TROMETHAMINE 60 MG/2 ML (IM) VIAL IM ONE (22:00)
[2016-12-08 00:14] VITALS: BP 146/87; PULSE 82; RESP 22; TEMP 98.2; O2SAT 94
[2016-12-08] MEDS: CLINDAMYCIN INJ 900 MG in SODIUM CHLORIDE 0.9% INJ 100 ML IV SCH ×2 (00:33→06:13)
[2016-12-08] MEDS: VANCOMYCIN INJ 1,250 MG in SODIUM CHLOR 0.9% 250 ML INJ 250 ML IV SCH (04:22)
[2016-12-08] MEDS ORDERED: VANCOMYCIN TROUGH ONE (04:45)
[2016-12-08 08:00] VITALS: BP_SYST 140; BP_SYST 142; BP_DIAS 105; BP_DIAS 90; PULSE 74; RESP 20; TEMP 97.7; O2SAT 98
[2016-12-08] MEDS: SODIUM CHLORIDE 0.9% FLUSH 10 ML FLUSH IV FLUSH SCH (08:28)
[2016-12-08] MEDS: ENOXAPARIN SODIUM 40 MG/0.4 ML SYRINGE SQ SCH (08:28)
[2016-12-08] MEDS ORDERED: CLIN1CAP6 PO (10:49)
--- NOTE | 2016-12-08 10:50 | HHI.DCPOC ---
Discharge Care Plan Diagnosis: (1) Facial cellulitis Goals to Promote Your Health * To prevent worsening of your condition and complications * To maintain your health at the optimal level Directions to Meet Your Goals Take your medications as prescribed Follow your dietary instruction Follow activity as directed Keep your appointments as scheduled Take your immunizations and boosters as scheduled If your symptoms worsen call your PCP, if no PCP go to Urgent Care Center or Emergency Room Smoking is Dangerous to Your Health. Avoid second hand smoke Call the 24-hour hour crisis hotline for domestic abuse at Nataly Diaz MD Dec 08, 2016 10:50
[2016-12-08] MEDS ORDERED: KETO10 PO (11:02)
--- NOTE | 2016-12-08 11:02 | HHI.DS ---
Discharge Summary Admission Date Dec 05, 2016 at 00:45 Discharge Date: Dec 08, 2016 Admitting Diagnosis facial cellulitis, polysubstance abuse (1) Facial cellulitis ICD Code: L03.211 (2) Polysubstance abuse ICD Code: F19.10 (3) Elevated BP without diagnosis of hypertension ICD Code: R03.0 Procedures None Brief History - From Admission History of present illness from the admitting physician 41-year-old female with minimal past medical history reports a pimple on her chin which she broke open and then had subsequent increased swelling and erythema which progressed rather rapidly. She has subjective chills and fevers and came to the emergency room. Soft tissue is quite edematous and erythematous from the left side of her cheek all the way into the submental and throat area. There is a large fluctuant pustule area on the chin. Face is grossly symmetrical. She has had difficulties swallowing. Patient was not taking any antibiotics at home and came to the emergency room. Here she was given IV antibiotics. CT of the head was done also. She is recommended to stay in the hospital for antibiotics over the patient declined this admission and discharged herself AGAINST MEDICAL ADVICE. CBC/BMP: 12/06/16 0515 12/07/16 0400 Significant Findings Laboratory Tests Test 12/06/16 12/07/16 12/08/16 05:15 04:00 04:20 Mean Corpuscular Hemoglobin 31.8 % Concent (32.0-36.0) Potassium Level 3.1 MEQ/L (3.5-5.1) Chloride Level 109 MEQ/L (98-107) Calcium Level 8.0 MG/DL (8.5-10.1) Estimat Glomerular Filtration 81 ML/MIN (>89) Rate Vancomycin Level Trough 4.9 MCG/ML 10.9 MCG/ML (5.0-10.0) (5.0-10.0) PE at Discharge GENERAL: This is a well-nourished, well-developed patient, in no apparent distress. SKIN: Asymmetrical jaw, chin, with submental area that is firm. Small wound that is dry, No surrounding erythema CARDIOVASCULAR: Normal rate and regular rhythm without murmurs, gallops, or rubs. RESPIRATORY: Good respiratory efforts. Breath sounds equal and clear to auscultation bilaterally. GASTROINTESTINAL: Abdomen soft, non-tender, non-distended. Normal active bowel sounds MUSCULOSKELETAL: Extremities without cyanosis, or edema. NEURO: Alert & Oriented x4 to person, place, time, situation. Moves all ext x4 PSYCH: Appropriate mood and affect. Pt update on day of discharge Patient reports she is feeling much better. Afebrile. Left facial area is less tender. She is requesting to go home. Hospital Course 41 year-old female admitted with left facial cellulitis and a small submental abscess/boil. The patient was treated with IV antibiotics with marked improvement of her symptoms. She was seen by ENT who recommended consultation with [facility] who reviewed her imaging and advised outpatient follow-up next week. Culture obtain from the wound showed few gram-positive cocci in clusters and pairs. Since the patient's symptoms are improving. She is discharged on clindamycin. Her cultures will be followed. She is advised to follow-up outpatient. Polysubstance abuse UDS positive for cocaine Patient advised against using illicit drugs. Pt Condition on Discharge: Good Discharge Disposition: Discharge Home Discharge Time: <= 30 minutes Discharge Instructions DIET: Follow Instructions for: As Tolerated, No Restrictions Activities you can perform: Regular-No Restrictions Follow up Referrals: Oral Maxillary Surgery - 2-3 Days with Chepe West DDS New Medications: Clindamycin (Clindamycin) 300 Mg Cap 300 MG PO TID Infection #30 Ref 0 CAP Ketorolac (Ketorolac) 10 Mg Tab 10 MG PO Q6HR PRN PAIN #20 Ref 0 TAB Continued Medications: Albuterol 8.5 GM Inh (Proair Hfa 8.5 GM Inh) 90 Mcg/Act Aer 1 PUFF INH Q4H 108 mcg/actuation PRN SHORTNESS OF BREATH #1 Ref 0 INHALER Aripiprazole (Abilify) 10 Mg Tab 10 MG PO DAILY #30 Ref 0 TAB Clonazepam (Klonopin) 2 Mg Tab 2 MG PO TID #90 Ref 0 TAB Fluoxetine (Prozac) 40 Mg Cap 60 MG PO DAILY #30 Ref 0 CAP Multiple Vitamin (Multiple Vitamin) 1 Tab 1 TAB PO DAILY Nutritional Supplement Ref 0 TAB Trazodone (Trazodone) 150 Mg Tablet 150 MG PO HS Control Depression #30 Ref 0 TAB Nataly Diaz MD Dec 08, 2016 11:02
== END 2016-12-08 11:53 | disposition home or self-care (01) | DRG 603 ==
LOC: PHED 22:13 → UNDOADMIN 12-05 00:45 → PHEDA 12-05 00:45 → PH3B 12-05 02:21 → PHEDA 12-05 02:21 → UNDODISIN 12-08 11:53
PROVIDERS: ADMIT Family Medicine; ATTEND Family Medicine
DX: L03.211 Cellulitis of face (principal); R13.10 Dysphagia, unspecified; F14.10 Cocaine abuse, uncomplicated; L02.01 Cutaneous abscess of face; R03.0 Elevated blood-pressure reading, without diagnosis of hypertension; G25.81 Restless legs syndrome; J44.9 Chronic obstructive pulmonary disease, unspecified; K58.9 Irritable bowel syndrome, unspecified; F20.9 Schizophrenia, unspecified; F31.9 Bipolar disorder, unspecified; F17.200 Nicotine dependence, unspecified, uncomplicated; F41.8 Other specified anxiety disorders; G43.909 Migraine, unspecified, not intractable, without status migrainosus
CPT/HCPCS: 80048; 80053; 80202; 80307; 81001; 82565; 84703; 85025; 86403; 87070; 87077; 87186; 87205; J1650; J1885; J3370; J7050